=== PATIENT | male | born 1960 | race Caucasian/White ===

== ENCOUNTER 2018-01-26 23:36 | Inpatient (IN) | payer OTHER ==
[2018-01-27] MEDS: DILTIAZEM 25 MG INJ IV ×2 (00:39→01:28)
[2018-01-27] MEDS: SOD CHLORIDE 0.9% 500 ML IV (00:49)
[2018-01-27 00:55] LABS: ADD MAN DIFF? NO
[2018-01-27 00:59] LABS: WHITE BLOOD COUNT 8.9 10^3/ul (4.8-10.8)
[2018-01-27 00:59] LABS: BASOPHIL # 0.1 10^3/ul (0.0-0.1); BASOPHILS % 0.6 % (0.0-2.0); EOSINOPHILS % 0.1 % (0.0-7.0); HEMOGLOBIN 14.5 g/dl (14.0-18.0); LYMPHOCYTES # 1.1 10^3/ul (0.8-2.9); LYMPHOCYTES % 11.7 % (15.0-51.0); MEAN CORPUSCULAR HEMOGLOBIN 28.3 pg (29.0-33.0); MEAN CORPUSCULAR HGB CONC 34.5 g/dl (32.0-37.0); MEAN PLATELET VOLUME 9.8 fl (7.4-10.4); MONOCYTE # 0.7 10^3/ul (0.3-0.9); MONOCYTES % 8.1 % (0.0-11.0); NEUTROPHILS % 78.6 % (39.0-77.0); PLATELET COUNT 147 10^3/UL (140-415); RED BLOOD COUNT 5.12 10^6/ul (4.70-6.10); RED CELL DISTRIBUTION WIDTH 14.6 % (11.5-14.5)
[2018-01-27 01:16] LABS: ALANINE AMINOTRANSFERASE 131 IU/L (13-69); ALBUMIN 4.9 g/dl (3.3-4.9); ALBUMIN/GLOBULIN RATIO 1.36; ALKALINE PHOSPHATASE 88 IU/L (42-121); ANION GAP 19 (8-16); ASPARTATE AMINO TRANSFERASE 93 IU/L (15-46); BILIRUBIN,INDIRECT 2.6 mg/dl (0-1.1); BILIRUBIN,TOTAL 2.6 mg/dl (0.2-1.3); BLOOD UREA NITROGEN 11 mg/dl (7-20); CALCIUM 10.4 mg/dl (8.4-10.2); CARBON DIOXIDE 26 mmol/L (21-31); CHLORIDE 96 mmol/L (97-110); CREATININE 0.97 mg/dl (0.61-1.24); GLUCOSE 381 mg/dl (70-220); POTASSIUM 3.6 mmol/L (3.5-5.1); SODIUM 137 mmol/L (135-144); TOTAL PROTEIN 8.5 g/dl (6.1-8.1)
[2018-01-27 01:26] LABS: B-TYPE NATRIURETIC PEPTIDE 1150 PG/ML (0-125); TROPONIN-I < 0.010 ng/ml (0.000-0.120)
[2018-01-27] MEDS: AMIODARONE 150MG/D5W BOLUS 100 ML IV (02:29)
[2018-01-27] MEDS ORDERED: ACETAMINOPHEN 325 MG TAB PO (02:30)
[2018-01-27] MEDS ORDERED: morphine 2 MG INJ IV (02:30)
[2018-01-27] MEDS ORDERED: ONDANSETRON 4 MG INJ IV (02:30)
[2018-01-27] MEDS ORDERED: BISACODYL (EC) 5 MG TAB PO (02:30)
[2018-01-27] MEDS ORDERED: DOCUSATE SODIUM 100 MG CAP PO (02:30)
[2018-01-27] MEDS ORDERED: NACL 0.9% 3 ML SYG IV (02:30)
[2018-01-27] MEDS ORDERED: GLUCOSE GEL 15 GRAM TUBE BUCCAL ×2 (04:00→14:30)
[2018-01-27] MEDS ORDERED: GLUCAGON 1 MG INJ IM ×2 (04:00→14:30)
[2018-01-27] MEDS ORDERED: DEXTROSE 50% 50 ML SYRINGE IV ×4 (04:00→14:30)
[2018-01-27] MEDS ORDERED: GLUCOSE GEL 15 GRAM TUBE PO ×4 (04:00→14:30)
[2018-01-27] MEDS: POTASSIUM CHLORIDE (SR) 20 MEQ TAB PO ×4 (04:36→20:50)
[2018-01-27] MEDS: METOPROLOL 5 MG INJ IV (05:28)
[2018-01-27 06:11] LABS: ADD MAN DIFF? NO
[2018-01-27 06:20] LABS: WHITE BLOOD COUNT 7.5 10^3/ul (4.8-10.8)
[2018-01-27 06:20] LABS: BASOPHILS % 0.4 % (0.0-2.0); HEMATOCRIT 37.9 % (42.0-52.0); HEMOGLOBIN 13.2 g/dl (14.0-18.0); LYMPHOCYTES # 1.1 10^3/ul (0.8-2.9); LYMPHOCYTES % 15.2 % (15.0-51.0); MEAN CORPUSCULAR HEMOGLOBIN 28.4 pg (29.0-33.0); MEAN CORPUSCULAR HGB CONC 34.8 g/dl (32.0-37.0); MEAN CORPUSCULAR VOLUME 81.7 fl (82.0-101.0); MEAN PLATELET VOLUME 10.2 fl (7.4-10.4); MONOCYTE # 0.8 10^3/ul (0.3-0.9); MONOCYTES % 10.8 % (0.0-11.0); NEUTROPHIL # 5.5 10^3/ul (1.6-7.5); NEUTROPHILS % 73.3 % (39.0-77.0); PLATELET COUNT 126 10^3/UL (140-415); POSITIVE DIFF @See below; RED BLOOD COUNT 4.64 10^6/ul (4.70-6.10); RED CELL DISTRIBUTION WIDTH 14.8 % (11.5-14.5)
[2018-01-27 06:48] LABS: HEMOGLOBIN A1C 8.3 % (0-5.9)
[2018-01-27 06:50] LABS: ALANINE AMINOTRANSFERASE 110 IU/L (13-69); ALBUMIN/GLOBULIN RATIO 1.17; ALKALINE PHOSPHATASE 66 IU/L (42-121); ANION GAP 15 (8-16); ASPARTATE AMINO TRANSFERASE 68 IU/L (15-46); BLOOD UREA NITROGEN 15 mg/dl (7-20); CALCIUM 9.7 mg/dl (8.4-10.2); CARBON DIOXIDE 28 mmol/L (21-31); CHLORIDE 96 mmol/L (97-110); CREATININE 0.86 mg/dl (0.61-1.24); GLUCOSE 279 mg/dl (70-220); MAGNESIUM 1.2 mg/dl (1.7-2.5); POTASSIUM 3.1 mmol/L (3.5-5.1); SODIUM 136 mmol/L (135-144); TOTAL PROTEIN 7.4 g/dl (6.1-8.1)
[2018-01-27 07:01] LABS: ETHANOL < 10.0 mg/dl
[2018-01-27] MEDS ORDERED: DILTIAZEM-D5W 125MG/125ML DRIP 125 ML IV (07:30)
[2018-01-27 08:36] LABS: HAAIG REFLEX REFLEX FILED
[2018-01-27] MEDS: MULTIVITAMINS THERAPEUTIC TAB PO (08:55)
[2018-01-27] MEDS: ASPIRIN 81 MG TAB PO (08:55)
[2018-01-27] MEDS: LISINOPRIL 20 MG TAB PO (08:56)
[2018-01-27] MEDS: SPIRONOLACTONE 25 MG TAB PO (08:56)
[2018-01-27] MEDS ORDERED: ASPIRIN 81 MG TAB PO (09:00)
[2018-01-27] MEDS: INSULIN ASPART [NOVOLOG] 3 ML PEN SC ×5 (09:02→20:53)
[2018-01-27] MEDS: ENOXAPARIN 100 MG/ML SYG SC ×2 (09:03→20:57)
[2018-01-27 09:06] LABS: CREATINE KINASE 156 IU/L (23-200)
[2018-01-27 09:19] LABS: CK INDEX 1.4; CK-MB 2.14 ng/ml (0.0-2.4); TROPONIN-I 0.025 ng/ml (0.000-0.120)
[2018-01-27 09:44] LABS: HEPATITIS B SURFACE ANTIGEN NEGATIVE (NEGATIVE)
[2018-01-27 10:02] LABS: HEPATITIS B CORE ANTIBODY NEGATIVE (NEGATIVE); HEPATITIS C VIRAL ANTIBODY NEGATIVE (NEGATIVE)
[2018-01-27 10:02] LABS: HEPATITIS B SURFACE ANTIBODY NEGATIVE (NEGATIVE)
[2018-01-27] MEDS: MAGNESIUM SULFATE 3 GM in DEXTROSE 5% 100 ML IVPB (10:14)
[2018-01-27 11:11] LABS: FREE T3 4.19 pg/ml (2.77-5.27); FREE T4 (FREE THYROXINE) 0.98 ng/dl (0.64-1.79)
[2018-01-27 13:28] LABS: TROPONIN-I 0.031 ng/ml (0.000-0.120)
[2018-01-27] MEDS: LINAGLIPTIN 5 MG TABLET PO (16:16)
[2018-01-27] MEDS: ATORVASTATIN 10 MG TAB PO (20:50)
[2018-01-27] MEDS: INSULIN GLARGINE [LANTus] (100 UNITS/ML) SYG SC (20:56)
[2018-01-27] MEDS: metFORMIN (XR) 500 MG TAB PO (20:57)
[2018-01-28 00:05] LABS: AMPHETAMINE/METHAMPHETAMINE Negative (NEGATIVE); BARBITURATES Negative (NEGATIVE); BENZODIAZEPINES Negative (NEGATIVE); CANNABINOIDS Negative (NEGATIVE); COCAINE Negative (NEGATIVE); OPIATES Negative (NEGATIVE)
[2018-01-28] MEDS: ACCU-CHEK XX ×2 (02:00)
[2018-01-28 06:33] LABS: ADD MAN DIFF? NO
[2018-01-28 06:41] LABS: BASOPHIL # 0.1 10^3/ul (0.0-0.1); BASOPHILS % 0.7 % (0.0-2.0); EOSINOPHILS # 0.1 10^3/ul (0.0-0.5); EOSINOPHILS % 0.8 % (0.0-7.0); HEMOGLOBIN 12.4 g/dl (14.0-18.0); LYMPHOCYTES # 2.4 10^3/ul (0.8-2.9); LYMPHOCYTES % 25.4 % (15.0-51.0); MEAN CORPUSCULAR HEMOGLOBIN 28.6 pg (29.0-33.0); MEAN CORPUSCULAR HGB CONC 34.4 g/dl (32.0-37.0); MEAN CORPUSCULAR VOLUME 82.9 fl (82.0-101.0); MEAN PLATELET VOLUME 10.1 fl (7.4-10.4); MONOCYTE # 1.1 10^3/ul (0.3-0.9); MONOCYTES % 11.6 % (0.0-11.0); NEUTROPHIL # 5.8 10^3/ul (1.6-7.5); NEUTROPHILS % 60.8 % (39.0-77.0); PLATELET COUNT 142 10^3/UL (140-415); RED BLOOD COUNT 4.34 10^6/ul (4.70-6.10); RED CELL DISTRIBUTION WIDTH 14.8 % (11.5-14.5)
[2018-01-28 06:41] LABS: WHITE BLOOD COUNT 9.5 10^3/ul (4.8-10.8)
[2018-01-28 07:10] LABS: CHOLESTEROL 274 mg/dl (100-200)
[2018-01-28 07:10] LABS: TRIGLYCERIDES 101 mg/dl (0-149)
[2018-01-28 07:46] LABS: ALANINE AMINOTRANSFERASE 91 IU/L (13-69); ALBUMIN 3.6 g/dl (3.3-4.9); ALBUMIN/GLOBULIN RATIO 1.12; ALKALINE PHOSPHATASE 50 IU/L (42-121); ANION GAP 15 (8-16); ASPARTATE AMINO TRANSFERASE 69 IU/L (15-46); BILIRUBIN,INDIRECT 1.6 mg/dl (0-1.1); BILIRUBIN,TOTAL 1.6 mg/dl (0.2-1.3); BLOOD UREA NITROGEN 24 mg/dl (7-20); CALCIUM 9.9 mg/dl (8.4-10.2); CARBON DIOXIDE 27 mmol/L (21-31); CHLORIDE 97 mmol/L (97-110); CREATININE 0.89 mg/dl (0.61-1.24); GLUCOSE 92 mg/dl (70-220); MAGNESIUM 1.5 mg/dl (1.7-2.5); SODIUM 135 mmol/L (135-144); TOTAL PROTEIN 6.8 g/dl (6.1-8.1)
[2018-01-28] MEDS: INSULIN ASPART [NOVOLOG] 3 ML PEN SC ×7 (07:50→20:28)
[2018-01-28] MEDS: LISINOPRIL 20 MG TAB PO (08:23)
[2018-01-28] MEDS: SPIRONOLACTONE 25 MG TAB PO (08:23)
[2018-01-28] MEDS: LINAGLIPTIN 5 MG TABLET PO (08:23)
[2018-01-28] MEDS: MULTIVITAMINS THERAPEUTIC TAB PO (08:23)
[2018-01-28] MEDS: metFORMIN (XR) 500 MG TAB PO ×2 (08:24→20:18)
[2018-01-28] MEDS: ASPIRIN 81 MG TAB PO (08:24)
[2018-01-28 08:33] LABS: CHOL/HDL RATIO 1.8 RATIO; HDL CHOLESTEROL 150 mg/dl (28-71); LDL CHOLESTEROL,CALCULATED 104 mg/dl
[2018-01-28] MEDS: ENOXAPARIN 100 MG/ML SYG SC (08:33)
[2018-01-28] MEDS: MAGNESIUM SULFATE 2 GM/50 ML 50 ML IVPB (14:47)
[2018-01-28] MEDS ORDERED: INSULIN GLARGINE [LANTus] (100 UNITS/ML) SYG SC (20:00)
[2018-01-28] MEDS: APIXABAN 5 MG TABLET PO (20:15)
[2018-01-28] MEDS: ATORVASTATIN 10 MG TAB PO (20:15)
[2018-01-28] MEDS: CARBAMIDE PEROXIDE 6.5% 15ML OTIC BOTH EARS (20:15)
[2018-01-28] MEDS: INSULIN GLARGINE [LANTus] (100 UNITS/ML) SYG SC (20:20)
[2018-01-29] MEDS: ACCU-CHEK XX (02:00)
[2018-01-29] MEDS: INSULIN ASPART [NOVOLOG] 3 ML PEN SC ×4 (07:52→12:42)
[2018-01-29 08:03] LABS: ADD MAN DIFF? NO
[2018-01-29 08:09] LABS: WHITE BLOOD COUNT 7.6 10^3/ul (4.8-10.8)
[2018-01-29 08:09] LABS: BASOPHIL # 0.1 10^3/ul (0.0-0.1); BASOPHILS % 0.8 % (0.0-2.0); EOSINOPHILS # 0.1 10^3/ul (0.0-0.5); EOSINOPHILS % 1.2 % (0.0-7.0); HEMATOCRIT 37.4 % (42.0-52.0); HEMOGLOBIN 12.5 g/dl (14.0-18.0); LYMPHOCYTES # 1.8 10^3/ul (0.8-2.9); LYMPHOCYTES % 23.1 % (15.0-51.0); MEAN CORPUSCULAR HEMOGLOBIN 28.2 pg (29.0-33.0); MEAN CORPUSCULAR HGB CONC 33.4 g/dl (32.0-37.0); MEAN CORPUSCULAR VOLUME 84.4 fl (82.0-101.0); MEAN PLATELET VOLUME 9.7 fl (7.4-10.4); MONOCYTE # 1.1 10^3/ul (0.3-0.9); MONOCYTES % 14.2 % (0.0-11.0); NEUTROPHIL # 4.5 10^3/ul (1.6-7.5); NEUTROPHILS % 59.8 % (39.0-77.0); PLATELET COUNT 167 10^3/UL (140-415); RED BLOOD COUNT 4.43 10^6/ul (4.70-6.10); RED CELL DISTRIBUTION WIDTH 14.8 % (11.5-14.5)
[2018-01-29] MEDS: ASPIRIN 81 MG TAB PO (08:23)
[2018-01-29] MEDS: LINAGLIPTIN 5 MG TABLET PO (08:23)
[2018-01-29] MEDS: MULTIVITAMINS THERAPEUTIC TAB PO (08:24)
[2018-01-29] MEDS: APIXABAN 5 MG TABLET PO (08:24)
[2018-01-29] MEDS: SPIRONOLACTONE 25 MG TAB PO (08:24)
[2018-01-29] MEDS: LISINOPRIL 20 MG TAB PO (08:24)
[2018-01-29] MEDS: CARBAMIDE PEROXIDE 6.5% 15ML OTIC BOTH EARS (08:25)
[2018-01-29] MEDS: metFORMIN (XR) 500 MG TAB PO (08:25)
[2018-01-29 08:33] LABS: ALANINE AMINOTRANSFERASE 126 IU/L (13-69); ALBUMIN/GLOBULIN RATIO 1.25; ALKALINE PHOSPHATASE 54 IU/L (42-121); ANION GAP 12 (8-16); ASPARTATE AMINO TRANSFERASE 118 IU/L (15-46); BILIRUBIN,INDIRECT 1.5 mg/dl (0-1.1); BILIRUBIN,TOTAL 1.5 mg/dl (0.2-1.3); BLOOD UREA NITROGEN 23 mg/dl (7-20); CALCIUM 9.5 mg/dl (8.4-10.2); CARBON DIOXIDE 30 mmol/L (21-31); CHLORIDE 98 mmol/L (97-110); CREATININE 0.95 mg/dl (0.61-1.24); GLUCOSE 150 mg/dl (70-220); MAGNESIUM 1.5 mg/dl (1.7-2.5); POTASSIUM 3.9 mmol/L (3.5-5.1); SODIUM 136 mmol/L (135-144); TOTAL PROTEIN 7.2 g/dl (6.1-8.1)
[2018-01-29] MEDS: MAGNESIUM SULFATE 2 GM/50 ML 50 ML IVPB (12:38)
[2018-01-29] MEDS: NIFEdipine (XL) 30 MG TAB PO (13:50)
[2018-01-29] MEDS ORDERED: morphine LIQ (10 MG/5 ML) CUP PO (17:00)
== END 2018-01-29 17:25 | disposition home or self-care (01) | DRG 309 ==
LOC: E/R 23:36 → TEL 01-27 01:57
PROVIDERS: Family Medicine
DX: I48.0 Paroxysmal atrial fibrillation (principal); I50.32 Chronic diastolic (congestive) heart failure; E11.65 Type 2 diabetes mellitus with hyperglycemia; I11.0 Hypertensive heart disease with heart failure; E78.5 Hyperlipidemia, unspecified; E87.5 Hyperkalemia; D69.6 Thrombocytopenia, unspecified
CPT/HCPCS: 36415; 71045; 76705; 80053; 80061; 80307; 82550; 82553; 82962; 83036; 83735; 83880; 84439; 84443; 84481; 84484; 85025; 86704; 86706; 86708; 86709; 86803; 87340; 93005; 93306; 96361; 96374; 96375; 99291-25; G0378